=== PATIENT | male | born 1965 | race Caucasian/White ===

== ENCOUNTER 2024-04-05 19:07 | Emergency (ER) | payer BC, SELFPAY ==
[2024-04-05 19:18] VITALS: BP 155/90; PULSE 97; TEMP 37.6; O2SAT 95; BMI 35.7
--- NOTE | 2024-04-05 19:25 | XR_ITS ---
The [address] [address] Patient Name: ADAL VERNON MRN: [id number] date: 1965 Sex: M Assigned Patient Location: ER Current Patient Location: ER Accession/Order Number: [id number] Exam Date: 04/05/2024 20:00 Report Date: 04/05/2024 20:47 At the request of: RUFINA CASTRO Procedure: XR chest 1V EXAMINATION:XR chest 1V INDICATION:Cough COMPARISON:01/21/2023 TECHNIQUE:A single frontal view of the chest is submitted. FINDINGS: The cardiomediastinal silhouette is not enlarged. The pulmonary vascularity is within normal limits. The lungs are clear based on chest radiography. There is no costophrenic angle blunting. XR/XR chest 1V IMPRESSION: Unremarkable plain film examination of the chest. Electronically authenticated by: ROSA DOWD Date: 04/05/2024 20:47
[2024-04-05 19:26] VITALS: O2SAT 95
--- NOTE | 2024-04-05 19:32 | ED.URI1 ---
Documented by User: JOSEP Montiel 04/05/24 20:52 HPI - URI/Sore Throat General Chief Complaint: Upper Respiratory Infection Stated Complaint: COUGH Time Seen by Provider: 04/05/24 19:16 Source: patient History of Present Illness HPI Narrative: Patient is a 59-year-old male who presents to the emergency department for 3 to 4-day history of nasal congestion, chest congestion and coughing up phlegm. He states that he coughs so hard that he vomits. He is speaking and breathing easily at initial interview. He has not self tested for COVID at home. No medications taken prior to arrival. He states he was constipated but had a normal bowel movement yesterday or this morning, he cannot remember which. He has had no other persistent vomiting. Related Data Previous Rx's ?Medication ?Instructions ?Recorded azithromycin 250 mg tablet See Rx Instructions PO .COMPLEX #6 04/05/24 (Zithromax Z-Real) tabs benzonatate 100 mg capsule 100 mg PO TID PRN cough #20 caps 04/05/24 prednisone 10 mg tablet See Rx Instructions .Route 04/05/24 .COMPLEX #30 tabs Allergies Allergy/AdvReac Type Severity Reaction Status Date / Time No Known Drug Allergies Allergy Verified 04/05/24 19:24 Review of Systems ROS Constitutional Denies: fever or chills Ears, nose, mouth, and throat Reports: nasal congestion; Denies: throat pain Cardiovascular Denies: chest pain Respiratory Reports: cough and change in phlegm color; Denies: shortness of breath Gastrointestinal Reports: constipation; Denies: nausea or vomiting Musculoskeletal Denies: back pain Integumentary/Breast Denies: rash Neurological Denies: headache Hematologic/Lymphatic Denies: easy bruising or easy bleeding Exam Narrative Exam Narrative: Gen.: Awake, alert, in no distress Head: Normocephalic, atraumatic ENT: Moist mucous membranes, Bilateral TMs clear with no pharyngeal erythema Respiratory: No respiratory distress, No wheezing or rhonchi noted, dry and hoarse cough Cardio: Regular rate and rhythm Gastrointestinal: Abdomen is soft, nondistended and nontender to palpation Extremities: Moves extremities equally Psych: Normal mood and affect Neuro: No focal neuro deficit Skin: Warm, dry, intact Constitutional Vital Signs, click to edit/add: Last Vital Signs Temp 99.6 F 04/05/24 19:18 Pulse 95 H 04/05/24 19:56 Resp 18 04/05/24 19:56 BP 155/90 H 04/05/24 19:18 Pulse Ox 93 L 04/05/24 19:56 O2 Del Method Room Air 04/05/24 19:56 Course Vital Signs Vital signs: Vital Signs Temperature 99.6 F 04/05/24 19:18 Pulse Rate 97 H 04/05/24 19:18 Respiratory Rate 18 04/05/24 19:18 Blood Pressure 155/90 H 04/05/24 19:18 Pulse Oximetry 95 04/05/24 19:18 Oxygen Delivery Method Room Air 04/05/24 19:18 Temperature 99.6 F 04/05/24 19:18 Pulse Rate 95 H 04/05/24 19:56 Respiratory Rate 18 04/05/24 19:56 Blood Pressure 155/90 H 04/05/24 19:18 Pulse Oximetry 93 L 04/05/24 19:56 Oxygen Delivery Method Room Air 04/05/24 19:56 MDM - URI/Sore Throat MDM Narrative Medical decision making narrative: Patient ordered to have a breathing treatment and Hycodan for symptoms in the ER. He is hemodynamically stable with no significant tachycardia or hypoxia. COVID test is negative and chest x-ray is pending at this time. Case turned over to attending physician for disposition Medical Records Attestation: I reviewed the patient's medical records. Lab Data Labs: Lab Results 04/05/24 Range/Units 19:45 SARS-CoV-2 Ag (CV2AG) Negative (NEGATIVE) Imaging Data Chest x-ray: Radiologist's impression: ITS Impressions Chest X-Ray 04/05/24 19:25 IMPRESSION: Unremarkable plain film examination of the chest. Electronically authenticated by: ROSA DOWD Date: 04/05/2024 20:47 Discharge Plan Discharge Stand Alone Forms: Portal Instructions Chief Complaint: Upper Respiratory Infection Clinical Impression: Upper respiratory infection Patient Disposition: Home, Self-Care Time of Disposition Decision: 21:00 Condition: Good Mode of Transportation: Private Vehicle Prescriptions / Home Meds: New prednisone 10 mg tablet See Rx Instructions .ROUTE .COMPLEX Qty: 30 0RF Rx Instructions: 4 by mouth daily for three days then 3 by mouth daily for three days then 2 by mouth daily for three days then 1 by mouth daily for three days azithromycin [Zithromax Z-Real] 250 mg tablet See Rx Instructions .ROUTE .COMPLEX Qty: 6 0RF Rx Instructions: For 250 mg dose pack: take 500 mg today (day 1), then 250 mg for 4 days (days 2-5) benzonatate 100 mg capsule 100 mg PO TID PRN (Reason: cough) Qty: 20 0RF Print Language: Kiswahili Instructions: Upper Respiratory Infection (ED) Referrals: Physician,Non-Staff, MD [Primary Care Provider] - 1 week Documented by User: Gautam Carreno MD 04/05/24 21:02 HPI - URI/Sore Throat General Chief Complaint: Upper Respiratory Infection Stated Complaint: COUGH Time Seen by Provider: 04/05/24 19:16 Related Data Previous Rx's ?Medication ?Instructions ?Recorded azithromycin 250 mg tablet See Rx Instructions PO .COMPLEX #6 04/05/24 (Zithromax Z-Real) tabs benzonatate 100 mg capsule 100 mg PO TID PRN cough #20 caps 04/05/24 prednisone 10 mg tablet See Rx Instructions .Route 04/05/24 .COMPLEX #30 tabs Allergies Allergy/AdvReac Type Severity Reaction Status Date / Time No Known Drug Allergies Allergy Verified 04/05/24 19:24 Exam Constitutional Vital Signs, click to edit/add: Last Vital Signs Temp 99.6 F 04/05/24 19:18 Pulse 95 H 04/05/24 19:56 Resp 18 04/05/24 19:56 BP 155/90 H 04/05/24 19:18 Pulse Ox 93 L 04/05/24 19:56 O2 Del Method Room Air 04/05/24 19:56 Course Vital Signs Vital signs: Vital Signs Temperature 99.6 F 04/05/24 19:18 Pulse Rate 97 H 04/05/24 19:18 Respiratory Rate 18 04/05/24 19:18 Blood Pressure 155/90 H 04/05/24 19:18 Pulse Oximetry 95 04/05/24 19:18 Oxygen Delivery Method Room Air 04/05/24 19:18 Temperature 99.6 F 04/05/24 19:18 Pulse Rate 95 H 04/05/24 19:56 Respiratory Rate 18 04/05/24 19:56 Blood Pressure 155/90 H 04/05/24 19:18 Pulse Oximetry 93 L 04/05/24 19:56 Oxygen Delivery Method Room Air 04/05/24 19:56 MDM - URI/Sore Throat MDM Narrative Medical decision making narrative: Patient ordered to have a breathing treatment and Hycodan for symptoms in the ER. He is hemodynamically stable with no significant tachycardia or hypoxia. COVID test is negative and chest x-ray is pending at this time. Case turned over to attending physician for disposition JK 9:00pm chest x-ray per radiologist shows no acute findings and COVID test is negative. He is prescribed prednisone and Zithromax and was started on those medications here tonight. He was also prescribed Tessalon. Treatment diagnosis and follow-up were discussed with the patient. Differential Diagnosis Differential diagnosis: Likely upper respiratory infection, viral infection, bronchitis and other (COVID, pneumonia) Lab Data Attestation: I reviewed the patient's lab results. Labs: Lab Results 04/05/24 Range/Units 19:45 SARS-CoV-2 Ag (CV2AG) Negative (NEGATIVE) Imaging Data Chest x-ray: Radiologist's impression: ITS Impressions Chest X-Ray 04/05/24 19:25
[2024-04-05] MEDS: HYDROCODONE BIT/HOMATROP 5 MG/1.5 MG TABLET 1 TAB PO (19:44)
[2024-04-05 19:56] VITALS: PULSE 95; O2SAT 93
[2024-04-05] MEDS: ALBUTEROL SULFATE 2.5 MG/3 ML VIAL NEB IH (19:56)
[2024-04-05 20:10] LABS: Internal Control Within Normal Limits; SARS-CoV-2 Ag NEGATIVE (NEGATIVE)
[2024-04-05 21:20] VITALS: BP 147/90; PULSE 64; O2SAT 97
[2024-04-05] MEDS: AZITHROMYCIN 250 MG TABLET 500 MG PO (21:20)
[2024-04-05] MEDS: PREDNISONE 20 MG TABLET 40 MG PO (21:20)
== END 2024-04-05 21:27 | disposition home or self-care (01) ==
PROVIDERS: Physician Assistant; Emergency Provider Emergency Medicine
DX: J06.9 Acute upper respiratory infection, unspecified (principal); Z20.822 Contact with and (suspected) exposure to COVID-19
CPT/HCPCS: 71045; 87811; 94640; 99284